=== PATIENT | female | born 1970 | race Two or more races ===

== ENCOUNTER 2019-02-18 21:48 | Emergency (ER) | payer OTHER, MEDICAID ==
[~2019-02-18] VITALS: Ht 167.6 cm; Wt 82.0 kg
[2019-02-19] MEDS ORDERED: SODIUM CHLORIDE 0.9% 1,000 ML IV ONE ×2 (01:30)
[2019-02-19] MEDS ORDERED: SODIUM CHLORIDE 0.9% 500 ML IV ONE (02:00)
[2019-02-19] MEDS ORDERED: CEFTRIAXONE 1 G PREMIX 50 ML IV ONE (02:00)
[2019-02-19 02:09] LABS: BASOPHILS % 0.3 % (0.0-2.0); EOSINOPHILS % 0.1 % (0.0-5.0); HEMATOCRIT. 44.1 % (36.0-48.0); HEMOGLOBIN. 14.2 g/dL (12.0-16.0); LYMPHOCYTES % 12.7 % (20.0-50.0); MEAN CORPUSCULAR HEMOGLOBIN 32.8 pg (28.0-32.0); MEAN PLATELET VOLUME 7.2 fl (7.4-10.4); MONOCYTES % 4.1 % (2.0-8.0); NEUTROPHILS % 82.8 % (40.0-76.0); PLATELET 218 x1000/uL (130-400); RED BLOOD CELL COUNT 4.32 mill/uL (4.2-5.4); RED CELL DISTRIBUTION WIDTH 14.1 % (11.6-14.6)
[2019-02-19 02:23] LABS: CHLORIDE 110 mEq/L (98-107)
[2019-02-19 02:26] LABS: ETHANOL BLOOD 117 mg/dL
[2019-02-19] MEDS ORDERED: ASPIRIN 81MG TABLET PO ONE (02:30)
[2019-02-19] MEDS ORDERED: HEPARIN 5000 UNITS/ML VIAL IV ONE (02:30)
[2019-02-19 02:50] VITALS: BP 83/34
[2019-02-19 02:51] LABS: CLARITY URINE CLOUDY (CLEAR); COLOR URINE YELLOW (YELLOW); KETONES URINE TRACE (NEGATIVE); LEUKOCYTE ESTERASE URINE NEGATIVE (NEGATIVE); NITRITE URINE NEGATIVE (NEGATIVE); OCCULT BLOOD URINE 1+ (NEGATIVE); PH URINE 6.5 (4.5-8.0); PROTEIN URINE 3+ (NEGATIVE); SPECIFIC GRAVITY URINE 1.013 (1.005-1.030)
[2019-02-19] MEDS ORDERED: DOPAMINE 400MG/250ML PREMIX 250 ML IV ONE (03:00)
[2019-02-19 04:05] LABS: *AMPHETAMINES SCREEN URINE NEGATIVE (NEGATIVE); *BARBITURATES SCREEN URINE NEGATIVE (NEGATIVE); *BENZODIAZEPINES SCREEN URINE NEGATIVE (NEGATIVE); *COCAINE SCREEN URINE NEGATIVE (NEGATIVE)
[2019-02-19 04:06] LABS: CANNABINOID URINE SCREEN NEGATIVE (NEGATIVE); METHADONE URINE SCREEN NEGATIVE (NEGATIVE); OPIATES URINE SCREEN NEGATIVE (NEGATIVE); PHENCYCLIDINE URINE SCREEN NEGATIVE (NEGATIVE)
== END 2019-02-19 03:25 | disposition short-term general hospital (02) ==
LOC: ER 21:48
DX: I21.19 ST elevation (STEMI) myocardial infarction involving other coronary artery of inferior wall (principal); F10.129 Alcohol abuse with intoxication, unspecified; R57.0 Cardiogenic shock; E87.6 Hypokalemia; I10 Essential (primary) hypertension; Y90.5 Blood alcohol level of 100-119 mg/100 ml
CPT/HCPCS: 36415; 80053; 80305; 80320; 81003; 83605; 83880; 84145; 84484; 85025; 87040; 87077; 87086; 87186; 93005; 96374; 96375; 99285; J0696; J1265; J1644; J7030; J7040; Z7610; G0480